=== PATIENT | male | born 1995 | race Hispanic/Latino ===

== ENCOUNTER 2024-07-13 19:40 | Emergency (ER) | payer OTHER ==
[~2024-07-13] VITALS: Ht 165.1 cm; Wt 68.9 kg
[2024-07-13] MEDS ORDERED: ACET-2079 PO (20:43)
[2024-07-13] MEDS ORDERED: AMOX1TAB16 PO (20:43)
--- NOTE | 2024-07-13 20:45 | ERN ---
General Chief Complaint: Abscess Stated Complaint: ABSCESS Time Seen by MD: 19:43 History of Present Illness Initial Comments 29-year-old male who presents for a left groin abscess. He reports has been present and an expanding for the last three days. No systemic illness. He has had this before. He went to the day [facility] night clinic who was unable to perform an I and D so he came here. Allergies: Coded Allergies: Cephalosporins (Unverified Allergy, Unknown, 07/13/24) Past Medical History Past Medical History: No Pertinent History Past Surgical History: None ROS Dictation CONSTITUTIONAL: No chills, no fever, no weakness, no diaphoresis, no malaise. HEAD/FACE: No signs of trauma. EENT: No eye pain, no blurred vision, no tearing, no double vision, no ear pain, no ear discharge, no nose pain, no nasal congestion, no throat pain, no throat swelling, no mouth pain. RESPIRATORY: No cough, no orthopnea, no SOB, no stridor, no wheezing. CARDIOVASCULAR: No chest pain, no edema, no palpitations, no syncope. GASTROINTESTINAL/ABDOMINAL: No abdominal pain, no constipation, no diarrhea, no nausea, no vomiting. GENITOURINARY: No abnormal discharge, no dysuria, no frequent urination, no hematuria. No complaints of pain in the genitals. MUSCULOSKELETAL: Left groin pain INTEGUMENTARY: No change in color, no change in hair/nails, no dryness, no lesion, no lumps, no rash. NEUROLOGICAL/PSYCH: No anxiety, not depressed, no emotional problem, no headache, no numbness, no pre-existing deficit, no history of seizures, no tremors, no weakness. HEMATOLOGIC/LYMPHATIC: Not anemic, no history of blood clots, no apparent bleeding, no bruising, glands not swollen. All Systems Negative, Except as Noted. Physical Exam Physical Exam Dictation VITAL SIGNS: Reviewed. GENERAL APPEARANCE: Alert, oriented x3, no acute distress. HEAD AND FACE: Non-traumatic. EYES: PERRL, pink conjunctivas, eyelid no trauma, anterior chamber clear. EARS: Pinnas intact and no signs of trauma or erythema. Ear canals clear and no discharge. TMs no erythema. NOSE: No discharge, no bleeding. OROPHARYNX: Mouth normal, teeth no caries, tongue pink. Pharynx clear, no erythema. Tonsils no exudates, no abscesses noted. Mucous membrane moist. NECK: Supple, non-tender, no thyromegaly, no masses, no JVD, no bruits. BREAST: Deferred. CHEST: No tenderness, no crepitus, no paradoxical movement, no retractions. LUNGS: Clear, well-ventilated, symmetric, no rales, no wheezing, no rhonchi, no stridor, good breath sounds bilaterally. HEART: Regular rate, regular rhythm, no murmur, no gallops. VASCULAR: No peripheral edema. ABDOMEN: Soft, positive bowel sounds, nondistended, no guarding, nontender, no rebound, no masses no hepatomegaly, no splenomegaly, no Philippe's sign, no hernias. RECTAL: Deferred. GENITAL: Deferred. NEUROLOGICAL: Normal speech, gross motor function intact, gross sensory function intact. MUSCULOSKELETAL: Neck nontender, full range of motion, back nontender, full range of motion. EXTREMITIES: Nontender, full range of motion. SKIN: Color pink, dry, no turgor, no rash, no lacerations, no abrasions, no contusions. Left groin abscess about the size of a golf ball LYMPHATICS: Deferred. MDM CC: Left groin abscess Historian: Patient No comorbidities No limitations by social determinants Differential diagnosis: Abscess Vital signs are stable On clinical exam he has a about a golf ball-sized abscess in the left groin. Does not include the testicles, non expanding. Appears to be a simple abscess. I and D performed without complication see the procedure note. Plan will be to discharge with antibiotics and pain control. Patient agrees with the plan. ED Course Vital Signs Date Time Temp Pulse Resp B/P (MAP) Pulse Ox O2 Delivery O2 Flow Rate FiO2 07/13/24 19:41 98.8 118 20 165/100 98 Room Air Incision and Drainage Incision and Drainage : Site: Left groin Blade Size: 11 I & D Procedure: no betadine prep Progress Left groin was numbed with the 10 cc of 1% lidocaine Thoroughly cleaned with chlorhexidine 3 cm incision linear simple superficial Purulence drained. There were some pockets that were explored and cleaned by me . No complications No packing Minimal blood loss Total time 5 minutes. Performed by me. DX & DISP Disposition: Discharge Departure Impression: Primary Impression: Abscess of left groin Condition: Stable Scripts Amoxicillin/Potassium Clav (Amox Tr-K Clv 875-125 mg Tab) 875 Mg-125 Mg Tablet 1 TAB PO BID for 10 Days, #20 TAB 0 Refills Prov: ESTUARDO CONNOLLY DO 07/13/24 Acetaminophen with Codeine (Acetaminophen-Cod #3 Tablet) 300 Mg-30 Mg Tablet 1 TAB PO Q6HPRN PRN for pain for 5 Days, #20 TAB 0 Refills Prov: ESTUARDO CONNOLLY DO 07/13/24 Additional Instructions: You have an abscess on your left groin. It was drained here in the ER. As we discussed, I recommend taking a bath tonight and likely to different baths tomorrow. Sit in the warm water and try to express as much drainage from the wound as possible. Keep the wound covered loosely with a Band-Aid. I have prescribed Augmentin, which is an antibiotic. Please take as prescribed. I have prescribed Tylenol with codeine to use for severe pain. You can also take 800 mg of ibuprofen 3 times a day. This medication is [id number]. I recommend that you follow up with your primary doctor in 3-5 days for a wound check. Return to the emergency department as needed. Referrals: SELF,REFERRAL (PCP) ESTUARDO CONNOLLY DO July 13, 2024 20:45
[2024-07-13 21:11] VITALS: BP 159/89; PULSE 99; RESP 18; TEMP 98.6; O2SAT 99
== END 2024-07-13 21:11 | disposition home or self-care (01) ==
LOC: EDH 19:40
DX: L02.214 Cutaneous abscess of groin (principal)
CPT/HCPCS: 10060; 99283